=== PATIENT | male | born 1945 | race Caucasian/White ===

== ENCOUNTER → 2020-04-15 | Outpatient (CLI) | payer MEDICARE, OTHER ==
[~2020-04-15] MED LIST: ASPIRIN EC81 MG PO; BRILINTA 90 MG90 MG GT; CARVEDILOL3.125 MG PO; CRESTOR 10 MG T10 MG PO; LISINOPRIL2.5 MG PO; NITROGLYCERIN0.4 MG SL
== END ==
LOC: LAB 08:59
DX: I25.10 Atherosclerotic heart disease of native coronary artery without angina pectoris (principal); Z98.61 Coronary angioplasty status
CPT/HCPCS: 36415; 80061

== ENCOUNTER → 2020-12-21 | Outpatient (CLI) | payer MEDICARE, OTHER | LOC: LAB 14:53 | DX: E78.5 Hyperlipidemia, unspecified (principal) | CPT/HCPCS: 36415; 80061; 80076 ==

== ENCOUNTER → 2020-12-27 | Outpatient (CLI) | payer MEDICARE, OTHER | LOC: HEART 5 07:09 | DX: I25.10 Atherosclerotic heart disease of native coronary artery without angina pectoris (principal); Z02.4 Encounter for examination for driving license; R94.39 Abnormal result of other cardiovascular function study | CPT/HCPCS: 78452; A9502 ==

== ENCOUNTER → 2021-02-18 | Outpatient (CLI) | payer MEDICARE, OTHER ==
[~2021-02-18] MED LIST changes: +COZAAR 25MG TAB25 MG PO; +FLOMAX 0.4 MG0.4 MG PO; +ISOSORBIDE MONO30 MG PO; +PRAVASTATIN SOD40 MG PO; +ZETIA10 MG PO
[2021-02-18 07:15] LABS: HEMOGLOBIN 15.1 gm/dl (14.0-17.5); RED BLOOD COUNT 4.82 M/UL (4.20-5.50); WHITE BLOOD COUNT 5.6 K/UL (4.5-11.0)
== END ==
LOC: CATH 06:32
PROVIDERS: Internal Medicine Cardiovascular Disease
DX: I25.118 Atherosclerotic heart disease of native coronary artery with other forms of angina pectoris (principal); I10 Essential (primary) hypertension; E78.5 Hyperlipidemia, unspecified; I25.2 Old myocardial infarction; Z20.822 Contact with and (suspected) exposure to COVID-19; Z79.82 Long term (current) use of aspirin; Z79.899 Other long term (current) drug therapy; Z95.5 Presence of coronary angioplasty implant and graft
CPT/HCPCS: 71045; 80048; 85025; 85347; 85610; 93005; 93571; 99152; 99153; C1769; C1887; C1894; J0461; J1644; J2250; J3010; J7030; J7040; Q9967; U0002

== ENCOUNTER → 2021-04-27 | Outpatient (CLI) | payer MEDICARE, OTHER | LOC: HEART 5 13:21 | DX: R06.02 Shortness of breath (principal); J98.11 Atelectasis | CPT/HCPCS: 71046; 94060; 94729 ==

== ENCOUNTER → 2021-07-26 | Outpatient (CLI) | payer MEDICARE, OTHER | LOC: HEART 5 14:41 | DX: R00.2 Palpitations (principal) ==